=== PATIENT | male | born 1930 | race Caucasian/White ===

== ENCOUNTER 2016-07-29 01:29 | Emergency (ER) | payer OTHER ==
--- NOTE | 2016-07-29 02:59 | ED CLINICAL REPORT ---
Clinical Report - Physicians/Mid Levels [facility] [address] [place] [address] 07/29/2016 1:32 Patient: KAUR MORALES Arrived- By ambulance. Historian- patient. HISTORY OF PRESENT ILLNESS Chief Complaint: VORA PROBLEM. This started today and is still present. The problem is described as moderate. It was abrupt in onset and has been constant but is not gone now. The patient has had Vora catheter problems (partially pulled out while sleeping). Sexual history is noncontributory. Similar symptoms previously: None. Recent medical care: The patient was seen recently by a health care provider. REVIEW OF SYSTEMS All systems otherwise negative, except as recorded above. PAST HISTORY See nurses notes. SOCIAL HISTORY Never smoker. No alcohol use or drug use. Is a local resident. ADDITIONAL NOTES The nursing notes have been reviewed. PHYSICAL EXAM Vital Signs: 07/29/2016 02:18 BP: 136/65. HR: 65. RR: 16. O2 saturation: 96%. Temp: 98 F. Blood pressure normal. Oxygen saturation normal. Appearance: Alert. Oriented X3. No acute distress. (non-toxic). ENT: Normal external inspection. Pharynx normal. Respiratory: No respiratory distress. Breath sounds normal. Abdomen: Soft and nontender. Bowel sounds normal. No mass. : Normal genitalia. Testes descended. Vora catheter (replaced and with emmanuel colored urine and leg bag attached and taped). Skin: Skin warm and dry. Normal skin color. No rash. Normal skin turgor. Extremities: Extremities exhibit normal ROM. No lower extremity edema. PROGRESS AND PROCEDURES Course of Care: the patient is a pleasant 85-year-old male presenting for evaluation of Vora catheter problem. The catheter had partially pulled out while the patient was asleep. No other injuries noted on examination. Vora was replaced in the emergency department. No blood noted at the tip of the penis or in the urine. Patient reports significant relief when the Vora catheter was replaced. Do not feel laboratory studies or other evaluation required at this time. Patient reported he has an appointment coming up soon. Patient was instructed to follow-up with his doctor. I discussed with patient and with the daughter workup, diagnosis, home care, follow-up, and return precautions. All questions answered. The daughter and patient expressed understanding of these instructions and was agreeable to them. Disposition: Discharged. Condition: good. CLINICAL IMPRESSION Vora catheter replacement (acute). INSTRUCTIONS Warnings: GENERAL WARNINGS: Return or contact your physician immediately if your condition worsens or changes unexpectedly, if not improving as expected, or if other problems arise. Specifically return if pain, vomiting, bleeding, breathing difficulty or fever. Your Current Medications: CONTINUE TAKING THE FOLLOWING MEDICATIONS: Unknown*. Follow-up: Return to the emergency department as needed. Follow up with your doctor as scheduled. Reason for referral: recheck today's concerns. Summary of care provided to patient and family via paper. Screening today revealed the patient's blood pressure to be in the normal range. The patient should follow up with a primary care provider for blood pressure management. Understanding of the discharge instructions verbalized by patient and family. (Electronically signed by Presley Pedro Dr. 08/02/2016 11:03)
--- NOTE | 2016-07-29 02:59 | ED NURSING NOTES ---
Clinical Report - Nurses [facility] [address] [place] [address] 07/29/2016 1:32 Patient: KAUR MORALES TRIAGE Triage time 0130. Acuity: LEVEL 4. Chief Complaint: VORA PROBLEM. --02:25 David Izaguirre R.N. 02:18 07/29/16. BP: 136/65. HR: 65. RR: 16. O2 saturation: 96%. Temp: 98 F. Pain level now 08/18. --02:25 David Izaguirre R.N. Weight: 68 kg estimated. Height/Length: 66 inches Estimated. BMI: 24.2. --02:17 David Izaguirre R.N. Medications Unknown. --02:20 David Izaguirre R.N. Allergies Unable to Obtain. --02:21 David Izaguirre R.N. History Arrived by EMS. Historian: EMS and patient. Accompanied by daughter. This started just prior to arrival. ( pt awoke to penile pain. pt's ovra leg anchor had become dislodged and the catheter tubing was caught up in the blankets. pt's vora partially pulled out.). 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 See EMS report. SOCIAL HX: Never smoker. No alcohol use or drug use. FALL RISK ASSESSMENT: Fall risk assessment completed. No fall risk identified. NUTRITIONAL RISK ASSESSMENT: The nutritional risk assessment revealed no deficiencies. FUNCTIONAL ASSESSMENT: Functional assessment: no impairments noted. LEARNING NEEDS ASSESSMENT: The learning needs assessment revealed no barriers. SKIN INTEGRITY ASSESSMENT: Skin integrity risk assessment completed. No skin integrity risk identified. --02:25 David Izaguirre R.N. Interventions ID band on patient. --02:25 David Izaguirre R.N. PHYSICAL ASSESSMENT GENERAL / NEURO / PSYCH: Alert. Oriented X 4. Appears in no acute distress. HEENT: Mucous membranes are pink. RESPIRATORY: Respirations not labored. Breath sounds within normal limits. CVS: Normal heart rate and rhythm. Capillary refill less than 2 seconds. GI / : Abdomen soft and nontender. Bowel sounds within normal limits. Vora catheter. SKIN: Skin is warm and dry. --02:26 David Izaguirre R.N. NURSING PROGRESS NOTES Patient gowned. Head of bed elevated. Reassurance given. Patient identifiers checked. Call light placed in reach. Bed placed in lowest position. Brakes of bed on. ( pts vora deflated, cleaned and advanced. vora baloon reinflated and extracted until tension felt. urine draining freely from catheter noted. no blood in urine or at meatus noted). --02:27 David Izaguirre R.N. ( new anchor applied.). --02:28 David Izaguirre R.N. DISPOSITION / DISCHARGE Departure time: 306. Condition at departure: improved. No learning barriers present. Discharge instructions provided and reviewed with the relative. Reviewed warnings. Treatments reviewed. Reviewed referrals. Written instructions provided in Amharic. Relative verbalized understanding. The patient was discharged by the physician. He was discharged home and accompanied by family. He left the Emergency Department in a wheelchair and via private vehicle. Family member driving. --03:08 David Izaguirre R.N. 03:06 07/29/16. BP: 136/66. HR: 66. RR: 16. O2 saturation: 98%. Temp: 98 F. Pain level now 0/10. --03:08 David Izaguirre R.N. Locked/Released at 07/29/2016 3:08 by David Izaguirre R.N.
--- NOTE | 2016-07-29 02:59 | ED NURSING NOTES ---
Clinical Report - Nurses [facility] [address] [place] [address] 07/29/2016 1:32 Patient: KAUR MORALES TRIAGE Triage time 0130. Acuity: LEVEL 4. Chief Complaint: VORA PROBLEM. --02:25 David Izaguirre R.N. 02:18 07/29/16. BP: 136/65. HR: 65. RR: 16. O2 saturation: 96%. Temp: 98 F. Pain level now 08/18. --02:25 David Izaguirre R.N. Weight: 68 kg estimated. Height/Length: 66 inches Estimated. BMI: 24.2. --02:17 David Izaguirre R.N. Medications Unknown. --02:20 David Izaguirre R.N. Allergies Unable to Obtain. --02:21 David Izaguirre R.N. History Arrived by EMS. Historian: EMS and patient. Accompanied by daughter. This started just prior to arrival. ( pt awoke to penile pain. pt's vora leg anchor had become dislodged and the catheter tubing was caught up in the blankets. pt's vora partially pulled out.). 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 See EMS report. SOCIAL HX: Never smoker. No alcohol use or drug use. FALL RISK ASSESSMENT: Fall risk assessment completed. No fall risk identified. NUTRITIONAL RISK ASSESSMENT: The nutritional risk assessment revealed no deficiencies. FUNCTIONAL ASSESSMENT: Functional assessment: no impairments noted. LEARNING NEEDS ASSESSMENT: The learning needs assessment revealed no barriers. SKIN INTEGRITY ASSESSMENT: Skin integrity risk assessment completed. No skin integrity risk identified. --02:25 David Izaguirre R.N. Interventions ID band on patient. --02:25 David Izaguirre R.N. PHYSICAL ASSESSMENT GENERAL / NEURO / PSYCH: Alert. Oriented X 4. Appears in no acute distress. HEENT: Mucous membranes are pink. RESPIRATORY: Respirations not labored. Breath sounds within normal limits. CVS: Normal heart rate and rhythm. Capillary refill less than 2 seconds. GI / : Abdomen soft and nontender. Bowel sounds within normal limits. Vora catheter. SKIN: Skin is warm and dry. --02:26 David Izaguirre R.N. NURSING PROGRESS NOTES Patient gowned. Head of bed elevated. Reassurance given. Patient identifiers checked. Call light placed in reach. Bed placed in lowest position. Brakes of bed on. ( pts vora deflated, cleaned and advanced. vora baloon reinflated and extracted until tension felt. urine draining freely from catheter noted. no blood in urine or at meatus noted). --02:27 David Izaguirre R.N. ( new anchor applied.). --02:28 David Izaguirre R.N. DISPOSITION / DISCHARGE Departure time: 306. Condition at departure: improved. No learning barriers present. Discharge instructions provided and reviewed with the relative. Reviewed warnings. Treatments reviewed. Reviewed referrals. Written instructions provided in Yoruba. Relative verbalized understanding. The patient was discharged by the physician. He was discharged home and accompanied by family. He left the Emergency Department in a wheelchair and via private vehicle. Family member driving. --03:08 David Izaguirre R.N. 03:06 07/29/16. BP: 136/66. HR: 66. RR: 16. O2 saturation: 98%. Temp: 98 F. Pain level now 0/10. --03:08 David Izaguirre R.N. Locked/Released at 07/29/2016 3:08 by David Izaguirre R.N.
--- NOTE | 2016-08-02 11:03 | ED DISCHARGE INSTRUCTIONS ---
Patient: KAUR MORALES General Instructions [facility] VisitID: [id number] [place] [address] 85y, M Registration Date/Time: 07/29/2016 Carballo catheter replacement (acute). INSTRUCTIONS Warnings: GENERAL WARNINGS: Return or contact your physician immediately if your condition worsens or changes unexpectedly, if not improving as expected, or if other problems arise. Specifically return if pain, vomiting, bleeding, breathing difficulty or fever. Your Current Medications: CONTINUE TAKING THE FOLLOWING MEDICATIONS: Unknown*. Follow-up: Return to the emergency department as needed. Follow up with your doctor as scheduled. Reason for referral: recheck today's concerns. Summary of care provided to patient and family via paper. Screening today revealed the patient's blood pressure to be in the normal range. The patient should follow up with a primary care provider for blood pressure management. Understanding of the discharge instructions verbalized by patient and family. ADDITIONAL INFORMATION Carballo Catheter Care A Carballo catheter is a rubber tube that is placed through the urethra (opening where urine comes out) and into the bladder. This helps drain urine from the bladder. There is a small balloon on the end of the tube that is inflated after insertion. This keeps the catheter from sliding out of the bladder. A Carballo catheter is used to treat urinary retention (unable to pass urine). It is also used when there is incontinence (loss of bladder control). Home Care: Finish taking any prescribed antibiotic even if you are feeling better before then. It is important to keep bacteria from getting into the collection bag. Do not disconnect the catheter from the collection bag. Use a leg band to secure the drainage tube, so it does not pull on the catheter. Drain the collection bag when it becomes full using the drain spout at the bottom of the bag. Do not try to pull or remove your catheter. This will injure your urethra. It must be removed by a doctor or nurse. Follow Up with your doctor, or as advised, for repeat urine testing and catheter removal or replacement. Get Prompt Medical Attention if any of the following occur: Fever of 100.4F (38C) or higher, or as directed by your healthcare provider Bladder pain or fullness Abdominal swelling, nausea or vomiting or back pain Blood or urine leakage around the catheter Bloody urine coming from the catheter (if a new symptom) Catheter falls out Catheter stops draining for 6 hours Weakness, dizziness or fainting You have been given the following additional information: Carballo Catheter, Care (Electronically signed by Presley Pedro Dr. 08/02/2016 11:03)
--- NOTE | 2016-08-02 11:03 | ED MED RECONCILIATION SUMMARY ---
Patient: KAUR MORALES Medication Reconciliation Report [facility] VisitID: [id number] [address] [place] [address] 85y, M Registration Date/Time: 07/29/2016 Weight: 68.0 kg Height/Length: 66 in. BMI: 24.2 ALLERGIES: Unable to Obtain The patient's Home Medications are listed below: Unknown. The source(s) of the original Home Medication information: Not obtained. The following Medications were given to the patient in the Emergency Department: None. The following Medications were prescribed to the patient: None.
--- NOTE | 2016-08-02 11:03 | ED MAR SUMMARY ---
..... Medication Administration Record [facility] [address] [place], [place] [id number] Patient: KAUR MORALES Visit ID: [id number] 85y, M Weight: 68.0 kg Height/Length: 66 in BMI: 24.2 ALLERGIES: Unable to Obtain
--- NOTE | 2016-08-02 11:03 | ED MED RECONCILIATION SUMMARY ---
Patient: KAUR MORALES Medication Reconciliation Report [facility] VisitID: [id number] [address] [place] [address] 85y, M Registration Date/Time: 07/29/2016 Weight: 68.0 kg Height/Length: 66 in. BMI: 24.2 ALLERGIES: Unable to Obtain The patient's Home Medications are listed below: Unknown. The source(s) of the original Home Medication information: Not obtained. The following Medications were given to the patient in the Emergency Department: None. The following Medications were prescribed to the patient: None.
--- NOTE | 2016-08-02 11:03 | ED MAR SUMMARY ---
..... Medication Administration Record [facility] [address] [place], [place] [id number] Patient: KAUR MORALES Visit ID: [id number] 85y, M Weight: 68.0 kg Height/Length: 66 in BMI: 24.2 ALLERGIES: Unable to Obtain
== END 2016-07-29 03:05 | disposition home or self-care (01) ==
LOC: ED SRH 01:29
PROC: 0T2BX0Z Change Drainage Device in Bladder, External Approach (ICD-10-PCS; principal; 2016-07-29)
DX: Z46.6 Encounter for fitting and adjustment of urinary device (principal)

== ENCOUNTER 2016-07-29 21:47 | Emergency (ER) | payer OTHER ==
--- NOTE | 2016-07-29 22:18 | ED CLINICAL REPORT ---
Clinical Report - Physicians/Mid Levels [facility] [address] [place] [address] 07/29/2016 21:47 Patient: KAUR MORALES Time Seen: 21:56. Arrived- By private vehicle. Historian- patient and daughter. HISTORY OF PRESENT ILLNESS Chief Complaint: VORA PROBLEM. This started just prior to arrival and is still present. The problem is described as mild. It was gradual in onset and has been intermittent and waxing/waning. No urinary frequency or urgency of urination. He has had Vora catheter problems (urine in underwear). Catheter has been blocked. Similar symptoms previously: Recent medical care: The patient was seen recently at this facility in the emergency department. Seen for similar symptoms. REVIEW OF SYSTEMS No fever, chills, flank pain, hematuria or abdominal pain. No vomiting, diarrhea, black stools, headache or sore throat. No chest pain or difficulty breathing. All systems otherwise negative, except as recorded above. PAST HISTORY Benign prostatic hypertrophy. Urinary retention. Has Vora catheter. Inguinal hernia. Medications: Albuterol Sulfate HFA Inhalation. Allergies: Unable to Obtain. SOCIAL HISTORY Never smoker. No alcohol use or drug use. ADDITIONAL NOTES The nursing notes have been reviewed. PHYSICAL EXAM Vital Signs: 07/29/2016 22:01 BP: 147/77. 07/29/2016 21:56 BP: 147. HR: 67. RR: 18. O2 saturation: 100%. Temp: 98.4 F. Appearance: Alert. No acute distress. ENT: Normal external inspection. Pharynx normal. Neck: Neck supple. CVS: Rate normal. Respiratory: No respiratory distress. Breath sounds normal. Abdomen: Soft and nontender. No mass. Back: Normal external inspection. No CVA tenderness. : Moderate right-sided hernia mass. No tenderness or erythema. Vora catheter. No urethral discharge, genital lesion or herpes-like lesions. Skin: Skin warm and dry. Normal skin color. Normal skin turgor. Extremities: Extremities exhibit normal ROM. No calf tenderness. Neuro: No alteration in mental status. No motor deficit. No sensory deficit. LABS, X-RAYS, AND EKG Pulse Oximetry: 07/29/2016 21:56 O2 saturation: 100%. (FIO2 - room air). Interpretation: normal. PROGRESS AND PROCEDURES Course of Care: 500 ml UOP after Vora tubing changed. Patient/family counseled. Old ED records reviewed. Disposition: Discharged. Condition: stable and improved. CLINICAL IMPRESSION Urinary retention with enlarged prostate. Recurrent right inguinal hernia. No obstruction or gangrene. Vora catheter replacement INSTRUCTIONS Drink plenty of fluids. Warnings: Further evaluation is necessary. It is very important to follow up with a physician. GENERAL WARNINGS: Return or contact your physician immediately if your condition worsens or changes unexpectedly, if not improving as expected, or if other problems arise. Your Current Medications: CONTINUE TAKING THE FOLLOWING MEDICATIONS: Albuterol Sulfate HFA Inhalation. Follow-up: Follow up with your doctor in two days. Follow up with a urologist Sunday as scheduled. (Electronically signed by Gabo Taylor DO 07/30/2016 1:46)
--- NOTE | 2016-07-29 22:18 | ED CLINICAL REPORT ---
Clinical Report - Physicians/Mid Levels [facility] [address] [place] [address] 07/29/2016 21:47 Patient: KAUR MORALES Time Seen: 21:56. Arrived- By private vehicle. Historian- patient and daughter. HISTORY OF PRESENT ILLNESS Chief Complaint: VORA PROBLEM. This started just prior to arrival and is still present. The problem is described as mild. It was gradual in onset and has been intermittent and waxing/waning. No urinary frequency or urgency of urination. He has had Vora catheter problems (urine in underwear). Catheter has been blocked. Similar symptoms previously: Recent medical care: The patient was seen recently at this facility in the emergency department. Seen for similar symptoms. REVIEW OF SYSTEMS No fever, chills, flank pain, hematuria or abdominal pain. No vomiting, diarrhea, black stools, headache or sore throat. No chest pain or difficulty breathing. All systems otherwise negative, except as recorded above. PAST HISTORY Benign prostatic hypertrophy. Urinary retention. Has Vora catheter. Inguinal hernia. Medications: Albuterol Sulfate HFA Inhalation. Allergies: Unable to Obtain. SOCIAL HISTORY Never smoker. No alcohol use or drug use. ADDITIONAL NOTES The nursing notes have been reviewed. PHYSICAL EXAM Vital Signs: 07/29/2016 22:01 BP: 147/77. 07/29/2016 21:56 BP: 147. HR: 67. RR: 18. O2 saturation: 100%. Temp: 98.4 F. Appearance: Alert. No acute distress. ENT: Normal external inspection. Pharynx normal. Neck: Neck supple. CVS: Rate normal. Respiratory: No respiratory distress. Breath sounds normal. Abdomen: Soft and nontender. No mass. Back: Normal external inspection. No CVA tenderness. : Moderate right-sided hernia mass. No tenderness or erythema. Vora catheter. No urethral discharge, genital lesion or herpes-like lesions. Skin: Skin warm and dry. Normal skin color. Normal skin turgor. Extremities: Extremities exhibit normal ROM. No calf tenderness. Neuro: No alteration in mental status. No motor deficit. No sensory deficit. LABS, X-RAYS, AND EKG Pulse Oximetry: 07/29/2016 21:56 O2 saturation: 100%. (FIO2 - room air). Interpretation: normal. PROGRESS AND PROCEDURES Course of Care: 500 ml UOP after Vora tubing changed. Patient/family counseled. Old ED records reviewed. Disposition: Discharged. Condition: stable and improved. CLINICAL IMPRESSION Urinary retention with enlarged prostate. Recurrent right inguinal hernia. No obstruction or gangrene. Vora catheter replacement INSTRUCTIONS Drink plenty of fluids. Warnings: Further evaluation is necessary. It is very important to follow up with a physician. GENERAL WARNINGS: Return or contact your physician immediately if your condition worsens or changes unexpectedly, if not improving as expected, or if other problems arise. Your Current Medications: CONTINUE TAKING THE FOLLOWING MEDICATIONS: Albuterol Sulfate HFA Inhalation. Follow-up: Follow up with your doctor in two days. Follow up with a urologist Sunday as scheduled. (Electronically signed by Gabo Taylor DO 07/30/2016 1:46)
--- NOTE | 2016-07-29 22:19 | ED NURSING NOTES ---
Clinical Report - Nurses [facility] [address] [place] [address] 07/29/2016 21:47 Patient: KAUR MORALES TRIAGE Triage time 2156. Acuity: LEVEL 4. Chief Complaint: VORA PROBLEM. --22:01 David Izaguirre R.N. 21:56 07/29/16. BP: 147. HR: 67. RR: 18. O2 saturation: 100%. Temp: 98.4 F. Pain level now 10. --22: David Izaguirre R.N. 22:01 07/29/16. BP: 147/77. --22:01 David Izaguirre R.N. Weight: 63.5 kg stated. Height/Length: 61 inches Per Patient. BMI: 26.5. --21:58 David Izaguirre R.N. Medications Albuterol Sulfate HFA Inhalation. --21:59 David Izaguirre R.N. Allergies Unable to Obtain. --22:00 aDvid Izaguirre R.N. History Arrived by private vehicle. Historian: daughter and patient. Accompanied by daughter. This started just prior to arrival. ( pt states vora catheter is leaking. presents with wet pants,undergarments.). 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 SOCIAL HX: Never smoker. No alcohol use or drug use. No infectious disease exposure. FALL RISK ASSESSMENT: Fall risk assessment completed. No fall risk identified. NUTRITIONAL RISK ASSESSMENT: The nutritional risk assessment revealed no deficiencies. FUNCTIONAL ASSESSMENT: Functional assessment: no impairments noted. LEARNING NEEDS ASSESSMENT: The learning needs assessment revealed no barriers. SKIN INTEGRITY ASSESSMENT: Skin integrity risk assessment completed. No skin integrity risk identified. --22:01 David Izaguirre R.N. Interventions ID band on patient. --22:01 David Izaguirre R.N. PHYSICAL ASSESSMENT GENERAL / NEURO / PSYCH: Alert. Oriented X 4. Appears in no acute distress. HEENT: Mucous membranes are pink. RESPIRATORY: Respirations not labored. Breath sounds within normal limits. CVS: Normal heart rate and rhythm. Capillary refill less than 2 seconds. GI / : Abdomen soft and nontender. Bowel sounds within normal limits. Vora catheter. SKIN: Skin is warm and dry. --22:01 David Izaguirre R.N. NURSING PROGRESS NOTES Patient gowned. Head of bed elevated. Reassurance given. Patient identifiers checked. Call light placed in reach. Bed placed in lowest position. Brakes of bed on. --: David Izaguirre R.N. DISPOSITION / DISCHARGE Departure time: 2231. Condition at departure: improved. No learning barriers present. Discharge instructions provided and reviewed with the relative and patient. Reviewed warnings. Treatments reviewed. Patient and family verbalized understanding. Written instructions provided in Maori. The patient was discharged by the physician. He was discharged home and accompanied by family. He left the Emergency Department ambulatory and via private vehicle. Family member driving. FALL RISK ASSESSMENT: Fall risk assessment completed. No fall risk identified. --22:46 David Izaguirre R.N. 22:44 07/29/16. BP: 144/78. HR: 88. RR: 16. O2 saturation: 98%. Temp: 98 F. Pain level now 0/10. --22:46 David Izaguirre R.N. Locked/Released at 07/29/2016 22:46 by David Izaguirre R.N.
--- NOTE | 2016-07-29 22:19 | ED NURSING NOTES ---
Clinical Report - Nurses [facility] [address] [place] [address] 07/29/2016 21:47 Patient: KAUR MORALES TRIAGE Triage time 2156. Acuity: LEVEL 4. Chief Complaint: VORA PROBLEM. --22:01 David Izaguirre R.N. 21:56 07/29/16. BP: 147. HR: 67. RR: 18. O2 saturation: 100%. Temp: 98.4 F. Pain level now 10. --22: David Izaguirre R.N. 22:01 07/29/16. BP: 147/77. --22:01 David Izaguirre R.N. Weight: 63.5 kg stated. Height/Length: 61 inches Per Patient. BMI: 26.5. --21:58 David Izaguirre R.N. Medications Albuterol Sulfate HFA Inhalation. --21:59 David Izaguirre R.N. Allergies Unable to Obtain. --22:00 David Izaguirre R.N. History Arrived by private vehicle. Historian: daughter and patient. Accompanied by daughter. This started just prior to arrival. ( pt states vora catheter is leaking. presents with wet pants,undergarments.). 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 SOCIAL HX: Never smoker. No alcohol use or drug use. No infectious disease exposure. FALL RISK ASSESSMENT: Fall risk assessment completed. No fall risk identified. NUTRITIONAL RISK ASSESSMENT: The nutritional risk assessment revealed no deficiencies. FUNCTIONAL ASSESSMENT: Functional assessment: no impairments noted. LEARNING NEEDS ASSESSMENT: The learning needs assessment revealed no barriers. SKIN INTEGRITY ASSESSMENT: Skin integrity risk assessment completed. No skin integrity risk identified. --22:01 David Izaguirre R.N. Interventions ID band on patient. --22:01 David Izaguirre R.N. PHYSICAL ASSESSMENT GENERAL / NEURO / PSYCH: Alert. Oriented X 4. Appears in no acute distress. HEENT: Mucous membranes are pink. RESPIRATORY: Respirations not labored. Breath sounds within normal limits. CVS: Normal heart rate and rhythm. Capillary refill less than 2 seconds. GI / : Abdomen soft and nontender. Bowel sounds within normal limits. Vora catheter. SKIN: Skin is warm and dry. --22:01 David Izaguirre R.N. NURSING PROGRESS NOTES Patient gowned. Head of bed elevated. Reassurance given. Patient identifiers checked. Call light placed in reach. Bed placed in lowest position. Brakes of bed on. --: David Izaguirre R.N. DISPOSITION / DISCHARGE Departure time: 2231. Condition at departure: improved. No learning barriers present. Discharge instructions provided and reviewed with the relative and patient. Reviewed warnings. Treatments reviewed. Patient and family verbalized understanding. Written instructions provided in Croatian. The patient was discharged by the physician. He was discharged home and accompanied by family. He left the Emergency Department ambulatory and via private vehicle. Family member driving. FALL RISK ASSESSMENT: Fall risk assessment completed. No fall risk identified. --22:46 David Izaguirre R.N. 22:44 07/29/16. BP: 144/78. HR: 88. RR: 16. O2 saturation: 98%. Temp: 98 F. Pain level now 0/10. --22:46 David Izaguirre R.N. Locked/Released at 07/29/2016 22:46 by David Izaguirre R.N.
--- NOTE | 2016-07-30 01:46 | ED DISCHARGE INSTRUCTIONS ---
Patient: KAUR MORALES General Instructions [facility] VisitID: [id number] [place] [address] 85y, M Registration Date/Time: 07/29/2016 Urinary retention with enlarged prostate. Recurrent right inguinal hernia. No obstruction or gangrene. Carballo catheter replacement INSTRUCTIONS Drink plenty of fluids. Warnings: Further evaluation is necessary. It is very important to follow up with a physician. GENERAL WARNINGS: Return or contact your physician immediately if your condition worsens or changes unexpectedly, if not improving as expected, or if other problems arise. Your Current Medications: CONTINUE TAKING THE FOLLOWING MEDICATIONS: Albuterol Sulfate HFA Inhalation. Follow-up: Follow up with your doctor in two days. Follow up with a urologist Sunday as scheduled. ADDITIONAL INFORMATION Urinary Retention (Male) Urinary retention means that you are unable to pass urine, even though your bladder is full. The most common cause for this in males is a blockage of the bladder outlet by an enlarged prostate gland or a bladder infection. Certain medicines can also cause this problem. This condition is treated by insertion of a catheter into the bladder to drain the urine. This provides immediate relief. The catheter may need to remain in place for a few days to prevent a recurrence. The catheter has a balloon on the tip which was inflated after insertion. This prevents the catheter from falling out. Home Care: If an antibiotic was prescribed to treat a bladder infection, be sure to take it until finished, even if you are feeling better before it is all gone. If a catheter was left in place, it is important to keep bacteria from getting into the collection bag. Do not disconnect the catheter from the collection bag. Use a leg band to secure the drainage tube, so it does not pull on the catheter. Drain the collection bag when it becomes full using the drain spout at the bottom of the bag. Do not try to pull or remove your catheter. This will injure your urethra. It must be removed by a doctor or nurse. Follow Up with your doctor as advised. If a catheter was left in place, it can usually be removed within 3-7 days. Some conditions require that the catheter remains in longer. Follow up with your doctor to determine the right time for you. Get Prompt Medical Attention if any of the following occur: Fever of 100.4F (38C) or higher, or as directed by your healthcare provider Bladder or lower abdominal pain or fullness Abdominal swelling, nausea, vomiting or back pain Blood or urine leakage around the catheter Bloody urine coming from the catheter (if a new symptom) Weakness, dizziness or fainting Confusion or change in usual level of alertness If a catheter was left in place, return if: Catheter falls out Catheter stops draining for 6 hours Hernia [Adult] A hernia is a bulge of the intestines or surrounding tissues through a tear in the muscle of the abdomen or groin. This may occur as a result of excessive coughing, heavy lifting or being overweight. It can also occur at the site of prior surgery. When a hernia first appears it may be painful due to stretching and tearing of the muscle fibers. When you lie down, the bulge should reduce in size or disappear completely. If it does not, and you are unable to flatten it with your hand, medical attention is needed at once. Home Care: Avoid heavy lifting and straining or any activities that cause pain in the hernia. Follow Up with your physician as directed by our staff. Get Prompt Medical Attention if any of the following occur: Increasing size of the hernia Increasing pain in the hernia A hernia that does not get smaller when you lie down Hardening of the hernia Abdominal swelling, fever or repeated vomiting Pain moves to the lower right abdomen (just below the waistline) or spreads to the back Carballo Catheter Care A Carballo catheter is a rubber tube that is placed through the urethra (opening where urine comes out) and into the bladder. This helps drain urine from the bladder. There is a small balloon on the end of the tube that is inflated after insertion. This keeps the catheter from sliding out of the bladder. A Carballo catheter is used to treat urinary retention (unable to pass urine). It is also used when there is incontinence (loss of bladder control). Home Care: Finish taking any prescribed antibiotic even if you are feeling better before then. It is important to keep bacteria from getting into the collection bag. Do not disconnect the catheter from the collection bag. Use a leg band to secure the drainage tube, so it does not pull on the catheter. Drain the collection bag when it becomes full using the drain spout at the bottom of the bag. Do not try to pull or remove your catheter. This will injure your urethra. It must be removed by a doctor or nurse. Follow Up with your doctor, or as advised, for repeat urine testing and catheter removal or replacement. Get Prompt Medical Attention if any of the following occur: Fever of 100.4F (38C) or higher, or as directed by your healthcare provider Bladder pain or fullness Abdominal swelling, nausea or vomiting or back pain Blood or urine leakage around the catheter Bloody urine coming from the catheter (if a new symptom) Catheter falls out Catheter stops draining for 6 hours Weakness, dizziness or fainting You have been given the following additional information: Urinary Retention, Male Hernia (Inguinal, Ventral, Umbilical) Carballo Catheter, Care (Electronically signed by Gabo Taylor DO 07/30/2016 1:46)
--- NOTE | 2016-07-30 01:46 | ED MED RECONCILIATION SUMMARY ---
Patient: KAUR MORALES Medication Reconciliation Report [facility] VisitID: [id number] [address] [place] [address] 85y, M Registration Date/Time: 07/29/2016 Weight: 63.5 kg Height/Length: 61 in. BMI: 26.5 ALLERGIES: Unable to Obtain The patient's Home Medications are listed below: CONTINUE TAKING THE FOLLOWING MEDICATIONS: Albuterol Sulfate HFA Inhalation The source(s) of the original Home Medication information: Not obtained. The following Medications were given to the patient in the Emergency Department: None. The following Medications were prescribed to the patient: None.
--- NOTE | 2016-07-30 01:46 | ED MAR SUMMARY ---
..... Medication Administration Record [facility] [address] [place] [place], [place] [id number] Patient: KAUR MORALES Visit ID: [id number] 85y, M Weight: 63.5 kg Height/Length: 61 in BMI: 26.5 ALLERGIES: Unable to Obtain
--- NOTE | 2016-07-30 01:46 | ED MAR SUMMARY ---
..... Medication Administration Record [facility] [address] [place], [place] [id number] Patient: KAUR MORALES Visit ID: [id number] 85y, M Weight: 63.5 kg Height/Length: 61 in BMI: 26.5 ALLERGIES: Unable to Obtain
--- NOTE | 2016-07-30 01:46 | ED MED RECONCILIATION SUMMARY ---
Patient: KAUR MORALES Medication Reconciliation Report [facility] VisitID: [id number] [address] [place] [address] 85y, M Registration Date/Time: 07/29/2016 Weight: 63.5 kg Height/Length: 61 in. BMI: 26.5 ALLERGIES: Unable to Obtain The patient's Home Medications are listed below: CONTINUE TAKING THE FOLLOWING MEDICATIONS: Albuterol Sulfate HFA Inhalation The source(s) of the original Home Medication information: Not obtained. The following Medications were given to the patient in the Emergency Department: None. The following Medications were prescribed to the patient: None.
== END 2016-07-29 22:33 | disposition home or self-care (01) ==
LOC: ED SRH 21:47
DX: T83.9XXA Unspecified complication of genitourinary prosthetic device, implant and graft, initial encounter (principal); N40.1 Benign prostatic hyperplasia with lower urinary tract symptoms; R33.8 Other retention of urine; K40.91 Unilateral inguinal hernia, without obstruction or gangrene, recurrent